=== PATIENT | female | born 1980 | race Caucasian/White ===

== ENCOUNTER 2017-07-20 12:15 | Emergency (ER) | payer SELFPAY ==
[2017-07-20] MEDS ORDERED: Ketorolac Tromethamine 30 MG/ML VIAL ONE ×2 (13:37→13:46)
[2017-07-20] MEDS ORDERED: Dexamethasone 4 mg/ml Vial ONE (14:42)
--- NOTE | 2017-07-20 15:19 | CT ---
CT LUMBAR SPINE WITHOUT CONTRAST: HISTORY: Low back pain. COMPARISON: None. TECHNIQUE: Multiple contiguous axial images were obtained in a CT of the lumbar spine without contrast. Sagitt al and coronal reformats were performed. FINDINGS: The prevertebral and paraspinal soft tissues are unremarkable. The vertebral bodies and interverteb ral disks of the lumbar spine demonstrate normal height and alignment without fracture or subluxatio n. No significant degenerative changes are seen. There are possibly small, generalized, concentric disk bulges at L4-L5 and at L5-S1. These would be better assessed with an MRI rather than a CT. IMPRESSION: 1. No evidence of acute osseous abnormality of the lumbar spine. 2. Possible disk bulging at L4-L5 and at L5-S1. Evaluation is limited with CT, and an MRI would ne ed to be performed to evaluate these regions, if desired. POS: [facility]
== END 2017-07-20 14:47 | disposition home or self-care (01) ==
LOC: ERS 12:15
DX: S39.012A Strain of muscle, fascia and tendon of lower back, initial encounter (principal); E16.2 Hypoglycemia, unspecified; F41.9 Anxiety disorder, unspecified; F31.9 Bipolar disorder, unspecified; Z79.899 Other long term (current) drug therapy; X50.1XXA Overexertion from prolonged static or awkward postures, initial encounter
CPT/HCPCS: 72131; 96372; J1100; J1885

== ENCOUNTER 2017-07-24 14:18 | Emergency (ER) | payer SELFPAY ==
[2017-07-24 14:52] LABS: Hematocrit 40.5 % (36.0-47.0); Mean Platelet Volume 8.7 fL (7.4-10.4); Red Blood Cell (RBC) Count 4.22 mill/uL (4.20-5.40); White Blood Cell (WBC) Count 6.7 thou/uL (4.8-10.8)
--- NOTE | 2017-07-24 15:04 | RAD ---
PORTABLE AP CHEST: Date: 07/24/17 HISTORY: Chest pain that began 15 minutes ago. COMPARISON: None available. FINDINGS: Cardiac silhouette and pulmonary vasculature are within normal limits. Lungs are clear. Osseous stru ctures are intact. IMPRESSION: No acute cardiopulmonary process. POS: [facility]
[2017-07-24 15:11] LABS: ALT (SGPT) 18 U/L (8-55); AST (SGOT) 18 U/L (5-34); Alkaline Phosphatase 54 U/L (40-150); Anion Gap 16 mmol/L (10-20); BUN (Urea Nitrogen) 23 mg/dL (7.0-18.7); Bilirubin, Total 0.2 mg/dL (0.2-1.2); CK (CPK) 46 U/L (29-168); Calc. Creatinine Clearance 0 mL/min (70-130); Calcium 9.4 mg/dL (7.8-10.44); Carbon Dioxide 27 mmol/L (22-29); Chloride 99 mmol/L (98-107); Estimated GFR-MDRD 80; Globulin 3.1 g/dL (2.4-3.5); Lipase 28 U/L (8-78); Protein, Total 7.4 g/dL (6.0-8.3)
[2017-07-24 15:14] LABS: Neutrophil 35 % (42-75)
[2017-07-24 15:16] LABS: Troponin I Less than 0.010 ng/mL (< 0.028)
[2017-07-24] MEDS ORDERED: Ibuprofen 200 MG TAB ONE (15:37)
[2017-07-24 17:02] LABS: Troponin I Less than 0.010 ng/mL (< 0.028)
== END 2017-07-24 17:25 | disposition home or self-care (01) ==
LOC: ERS 14:18
DX: R07.9 Chest pain, unspecified (principal); F31.9 Bipolar disorder, unspecified; F41.9 Anxiety disorder, unspecified; Z79.82 Long term (current) use of aspirin; Z79.899 Other long term (current) drug therapy
CPT/HCPCS: 36415; 71010; 80053; 82550; 82553; 83690; 83880; 84484; 85025; 93005

== ENCOUNTER 2017-09-11 13:08 | Emergency (ER) | payer SELFPAY ==
[2017-09-11] MEDS ORDERED: Ketorolac Tromethamine 30 MG/ML VIAL ONE (14:09)
[2017-09-11] MEDS ORDERED: Acetaminophen 500 MG TAB ONE (14:09)
== END 2017-09-11 14:35 | disposition home or self-care (01) ==
LOC: ERS 13:08
DX: S29.012A Strain of muscle and tendon of back wall of thorax, initial encounter (principal); F41.9 Anxiety disorder, unspecified; F31.9 Bipolar disorder, unspecified; Z79.82 Long term (current) use of aspirin; Z79.899 Other long term (current) drug therapy; X50.1XXA Overexertion from prolonged static or awkward postures, initial encounter
CPT/HCPCS: 93005; 96374; J1885